=== PATIENT | female | born 1975 | race Caucasian/White ===

== ENCOUNTER → 2016-05-09 | Outpatient (CLI) | payer BC ==
--- NOTE | 2016-05-09 14:14 | USB ---
Reason for exam: clinical finding. History: Patient had first child at age 33. Family history of breast cancer in paternal aunt at age 30. Took hormonal contraceptives beginning at age 17. Indicated problem(s): lump or thickening and pain in the left breast. Physical Findings: Nurse did not find any significant physical abnormalities on exam. US Breast LT Left breast ultrasound including all four quadrants, the retroareolar region and axilla demonstrates no cystic or solid lesion seen. The panniculus inferior and lateral to the left breast at the site of patient pain was also scanned and shows no solid or cystic lesion. These results were verbally communicated with the patient and result sheet given to the patient on 05/09/16. ASSESSMENT: Negative, BI-RAD 1 RECOMMENDATION: Return to routine screening mammogram schedule for both breasts. Manage patient on a clinical basis. (patient pain and any suspicious palpable abnormality).
== END | disposition home or self-care (01) ==
LOC: RADUSWWP 12:22
PROVIDERS: ATTEND Obstetrics & Gynecology
DX: N63 Unspecified lump in breast (principal); N64.4 Mastodynia

== ENCOUNTER → 2016-12-02 | Outpatient (CLI) | payer BC ==
--- NOTE | 2016-12-03 11:36 | MM ---
Reason for exam: screening (asymptomatic). Last mammogram was performed 1 year ago. History: Patient had first child at age 33. Family history of breast cancer in paternal aunt at age 30. Took hormonal contraceptives beginning at age 17. Physical Findings: A clinical breast exam by your physician is recommended on an annual basis and results should be correlated with mammographic findings. MG 3D Screening Mammo W/Cad Bilateral CC and MLO view(s) were taken. Prior study comparison: November 21, 2015, bilateral MG 3d screening mammo w/cad. November 03, 2014, bilateral MG screening mammo w CAD. There are scattered fibroglandular densities. No significant changes when compared with prior studies. ASSESSMENT: Benign, BI-RAD 2 RECOMMENDATION: Routine screening mammogram of both breasts in 1 year.
== END | disposition home or self-care (01) ==
LOC: RADMAMWWP 13:17
PROVIDERS: ATTEND Obstetrics & Gynecology
DX: Z12.31 Encounter for screening mammogram for malignant neoplasm of breast (principal)
CPT/HCPCS: 77063; G0202

== ENCOUNTER → 2017-03-03 | Outpatient (CLI) | payer BC ==
--- NOTE | 2017-03-03 07:44 | MR ---
EXAMINATION TYPE: MR knee LT wo con DATE OF EXAM: 03/03/2017 COMPARISON: NONE HISTORY: Left knee pain x 3 months, Left Chondromalacia patella left knee, Surgery TECHNIQUE: Multiplanar, multisequence imaging of the left knee is performed without IV contrast. FINDINGS: MEDIAL MENISCUS: There is mild increased signal within the posterior horn medial meniscus compatible some mild internal derangement or degenerative change. LATERAL MENISCUS: There is increased signal within the anterior and posterior horns of the lateral me niscus. Communication with an articular surface is not identified. Type I internal derangement is lik niko present. Degenerative change could be considered. CRUCIATE LIGAMENTS: The anterior and posterior cruciate ligaments are intact and unremarkable. COLLATERAL LIGAMENTS: The medial collateral ligament and lateral collateral ligament complex are inta ct. Some mild increased signal is adjacent to the lateral collateral ligament suggestive for some mi ld strain. EXTENSOR MECHANISM: Distal quadriceps tendon appears unremarkable. There is increased signal within t he distal medial patellar tendon. Anterior superficial soft tissue swelling is present. Partial injur y near the insertion of the medial patellar tendon may be present. Correlate with the patient's sympt oms. EFFUSION: No significant suprapatellar joint effusion. POPLITEAL CYST: No popliteal/david cyst. TRICOMPARTMENT SPACES: There is diffuse narrowing through the joint space. CARTILAGE: There is diffuse thinning of the articular cartilage of the medial and lateral collateral ligaments. There may be some lateral tracking of the distal quadriceps tendon. There is thinning of t he articular cartilage of the patellofemoral joint space. There may be some loss of the lateral artic ular cartilage in the mid to superior portion of the patella. Typical signal change for chondromalaci a is not apparent. BONE MARROW SIGNAL: No focal abnormal marrow signal is appreciated. OTHER: No additional significant abnormality is appreciated. IMPRESSION: 1. Superficial soft tissue swelling over the patellar tendon. 2. There is some increased signal and thickening within the substance of the medial portion patellar tendon near its insertion on the tibia. Correlate for partial tear. Correlate with the patient's symp toms. 3. Internal derangement anterior and posterior horns lateral meniscus. Some internal derangement or d egenerative change may be within the posterior horn medial meniscus. 4. Strain of the lateral collateral ligament. Tear is not identified. 5. Osteoarthritic degenerative change tricompartment spaces, more notable with possible loss of artic ular cartilage superior lateral patella.
== END | disposition home or self-care (01) ==
LOC: RADMRIMAIN 06:38
PROVIDERS: ATTEND Orthopaedic Surgery
DX: S83.422D Sprain of lateral collateral ligament of left knee, subsequent encounter (principal); M17.12 Unilateral primary osteoarthritis, left knee

== ENCOUNTER → 2017-06-02 | Outpatient (CLI) | payer OTHER ==
--- NOTE | 2017-06-02 11:30 | XR ---
EXAMINATION TYPE: XR knee complete bilateral DATE OF EXAM: 06/02/2017 CLINICAL HISTORY: Slip and fall injury with bilateral knee pain TECHNIQUE: Three views of the bilateral knees are obtained. COMPARISON: None. FINDINGS: There is no acute fracture/dislocation evident in either knee. Mild to moderate joint spac e loss patellofemoral compartment bilaterally with mild spurring in the left is appreciated. There i s mild symmetric joint space loss medial tibiofemoral compartment bilaterally. The overlying soft tis chang appears unremarkable bilaterally. IMPRESSION: There is no acute fracture or dislocation in either knee.
== END | disposition home or self-care (01) ==
LOC: RADXRMAIN 10:51
PROVIDERS: ATTEND Emergency Medicine
DX: S80.01XA Contusion of right knee, initial encounter (principal); M25.562 Pain in left knee

== ENCOUNTER → 2017-06-11 | Outpatient (CLI) | payer OTHER ==
--- NOTE | 2017-06-11 15:21 | XR ---
Right leg HISTORY: Contusion, trauma one month prior To views of the right leg on 4 images, technique somewhat limited Bone mineralization, joint spaces and alignment are maintained. Suspect some soft tissue swelling. IMPRESSION: No fracture or dislocation is evident. Consider alternate imaging as indicated.
== END | disposition home or self-care (01) ==
LOC: RADXRMAIN 12:09
PROVIDERS: ATTEND Emergency Medicine
DX: S80.01XA Contusion of right knee, initial encounter (principal)

== ENCOUNTER → 2017-07-03 | Outpatient (CLI) | payer OTHER ==
--- NOTE | 2017-07-03 08:21 | MR ---
EXAMINATION TYPE: MR knee LT wo con DATE OF EXAM: 07/03/2017 COMPARISON: Prior MRI left knee March 03, 2017. Bilateral knee x-rays June 02, 2017 HISTORY: Left knee pain and contusion injury per order. Recent fall injury May 17, 2017 per patie nt. History of prior knee surgery per patient. TECHNIQUE: Multiplanar, multisequence images of the knee is performed without IV contrast. FINDINGS: MEDIAL MENISCUS: Anterior and posterior horns are intact without tear. LATERAL MENISCUS: There is lateral extrusion of lateral meniscus seen best on coronal images with inc reased signal on coronal image 18 corresponding to central body. There is increased signal confirm sa gittal image 6 extending to inferior articular surface. CRUCIATE LIGAMENTS: The anterior and posterior cruciate ligaments are intact and unremarkable. COLLATERAL LIGAMENTS: The medial collateral ligament is intact and unremarkable. There is marked incr eased signal lateral collateral ligament complex causing abnormal bowing . I suspect multi septated p araMeniscal cyst. Focus of increased at distal femoral attachment true LCL is felt present coronal image 21 superior aspect. EXTENSOR MECHANISM: Visualized quadriceps and patellar tendons are intact. Persistent slight increase d signal distal patellar tendon is present could reflect magic angle phenomenon. Some increased fluid signal deep to distal quadriceps tendon sagittal image 13 is noted could reflect suprapatellar impin gement syndrome. EFFUSION: No significant suprapatellar joint effusion. POPLITEAL CYST: No popliteal/david cyst. TRICOMPARTMENT SPACES: There is mild to moderate joint space loss and spurring most prominent lateral aspect of the patellofemoral compartment. Additional mild joint space loss medial and lateral tibiof emoral compartments is seen. CARTILAGE: There is some thinning of articular cartilage along posterior patellar pole inferior later al aspect. No full-thickness loss is identified. BONE MARROW SIGNAL: Heterogeneity consistent with red marrow reconversion is seen. OTHER: No additional significant abnormality is appreciated. IMPRESSION: 1. Redemonstration of full-thickness tear through the central body of the lateral meniscus with large adjacent parameniscal septated cyst causing mass effect on lateral collateral ligament complex. 2. Persistent mild proximal tendinosis and moderate chronic sprain injury lateral collateral ligament complex. No significant tear. 3. Stable mild to moderate tricompartment degenerative changes most prominent patellofemoral compartm ent.
== END | disposition home or self-care (01) ==
LOC: RADMRIMAIN 06:17
PROVIDERS: ATTEND Emergency Medicine
DX: S83.282A Other tear of lateral meniscus, current injury, left knee, initial encounter (principal); M67.864 Other specified disorders of tendon, left knee

== ENCOUNTER → 2018-01-12 | Outpatient (CLI) | payer BC ==
--- NOTE | 2018-01-14 10:33 | MM ---
Reason for exam: screening (asymptomatic). Last mammogram was performed 1 year and 1 month ago. History: Patient had first child at age 33. Family history of breast cancer in paternal aunt at age 30. Took hormonal contraceptives beginning at age 17. Physical Findings: A clinical breast exam by your physician is recommended on an annual basis and results should be correlated with mammographic findings. MG 3D Screening Mammo W/Cad Bilateral CC and MLO view(s) were taken. Prior study comparison: December 02, 2016, bilateral MG 3d screening mammo w/cad. November 21, 2015, bilateral MG 3d screening mammo w/cad. There are scattered fibroglandular densities. No significant changes when compared with prior studies. ASSESSMENT: Negative, BI-RAD 1 RECOMMENDATION: Routine screening mammogram of both breasts in 1 year.
== END | disposition home or self-care (01) ==
LOC: RADMAMWWP 16:21
PROVIDERS: ATTEND Obstetrics & Gynecology
DX: Z12.31 Encounter for screening mammogram for malignant neoplasm of breast (principal)
CPT/HCPCS: 77063; 77067

== ENCOUNTER → 2018-10-19 | Outpatient (CLI) | payer BC | END | disposition home or self-care (01) | LOC: LABWHC1 12:03 | PROVIDERS: ATTEND Internal Medicine | DX: Z13.0 Encounter for screening for diseases of the blood and blood-forming organs and certain disorders involving the immune mechanism (principal); Z83.2 Family history of diseases of the blood and blood-forming organs and certain disorders involving the immune mechanism | CPT/HCPCS: 36415; 81291 ==

== ENCOUNTER → 2019-01-13 | Outpatient (CLI) | payer BC ==
--- NOTE | 2019-01-14 10:25 | MM ---
Reason for exam: screening (asymptomatic). Last mammogram was performed 1 year ago. History: Patient had first child at age 33. Family history of breast cancer in paternal aunt at age 30. Took hormonal contraceptives beginning at age 17. Physical Findings: A clinical breast exam by your physician is recommended on an annual basis and results should be correlated with mammographic findings. MG 3D Screening Mammo W/Cad Bilateral CC and MLO view(s) were taken. Prior study comparison: January 12, 2018, bilateral MG 3d screening mammo w/cad. December 02, 2016, bilateral MG 3d screening mammo w/cad. There are scattered fibroglandular densities. No significant changes when compared with prior studies. ASSESSMENT: Negative, BI-RAD 1 RECOMMENDATION: Routine screening mammogram of both breasts in 1 year.
== END | disposition home or self-care (01) ==
LOC: RADMAMWWP 16:13
PROVIDERS: ATTEND Obstetrics & Gynecology
DX: Z12.31 Encounter for screening mammogram for malignant neoplasm of breast (principal)
CPT/HCPCS: 77063; 77067

== ENCOUNTER → 2019-05-25 | Outpatient (CLI) | payer BC ==
[2019-05-25 17:18] VITALS: BP 144/78; PULSE 61; TEMP 98.2; BMI 41.1
--- NOTE | 2019-05-25 21:25 | P.BASOAP ---
Subjective Progress Note Date: 05/25/19 Principal diagnosis: Patient here today complaining of left lower quadrant abdominal pain. She has lost 60 pounds since having her band rosemary Placed. An ultrasound and CAT scan were performed. Still feels restriction. No nausea or vomiting. No heartburn. No hematuria. Objective - Vital Signs Vital signs: Vital Signs Temp 98.2 F 05/25/19 17:11 Pulse 61 05/25/19 17:11 Resp BP 144/78 05/25/19 17:11 Pulse Ox Intake & Output 05/25/19 05/25/19 05/26/19 06:59 18:59 06:59 Weight 133.81 kg - Exam Abdomen: Soft, nontender, nondistended Assessment/Plan (1) Left lower quadrant abdominal pain Narrative/Plan: We will review recent CAT scan. Continue to monitor symptoms Plan: Date: 05/25/19 Initial Weight: Initial BMI: Current Weight: 133.81 kg Current BMI: 41.1 Type of Surgery: Total Volume in Band: Previous Volume: Volume Removed: Volume Added: Band Size:
== END ==
LOC: BARWHC3 15:40
PROVIDERS: ATTEND Surgery
DX: R10.31 Right lower quadrant pain (principal)
CPT/HCPCS: 99211

== ENCOUNTER → 2020-01-04 | Outpatient (CLI) | payer BC ==
--- NOTE | 2020-01-04 16:47 | P.BASOAP ---
Subjective Progress Note Date: 01/04/20 Principal diagnosis: Abdominal pain 44-year-old female known to our service. Patient with history of previous lap band placement. Last patient started having pain left upper quadrant at the port site. Patient states it felt firm in that area. This was associated with satiety, nausea, and increased belching. No vomiting. The night before the patient had reflux which she does not normally have. This was a different location than the pain that she had when she was seen earlier this year which was present in the left lower quadrant. She has had some weight gain. She has been more active. She is walking 3 miles daily. Pain resolved on Friday. Friday the pain was off and on throughout the day. Feels fine currently. Feels decent restriction. Again no vomiting. No dysphagia. Objective - Exam Abdomen: Soft, nontender, nondistended Assessment/Plan (1) Left lower quadrant abdominal pain Narrative/Plan: Patient doing better at this time. Continue monitoring for recurrent episodes of left upper quadrant pain. If pain recurs we'll proceed with upper endoscopy. Patient will call me with any changes. No band adjustment at this time. Plan: Date: Initial Weight: Initial BMI: Current Weight: Current BMI: Type of Surgery: Total Volume in Band: Previous Volume: Volume Removed: Volume Added: Band Size:
[2020-01-04 17:24] VITALS: BP 147/90; PULSE 59; TEMP 98; BMI 43.0
== END | disposition home or self-care (01) ==
LOC: BARWHC3 15:53
PROVIDERS: ATTEND Surgery
DX: R10.32 Left lower quadrant pain (principal)
CPT/HCPCS: 99211

== ENCOUNTER → 2020-01-27 | Outpatient (CLI) | payer BC ==
--- NOTE | 2020-01-28 12:10 | MM ---
Reason for exam: screening (asymptomatic). Last mammogram was performed 1 year ago. History: Patient had first child at age 33. Family history of breast cancer in paternal aunt at age 30. Took hormonal contraceptives for 14 years beginning at age 17. Physical Findings: A clinical breast exam by your physician is recommended on an annual basis and results should be correlated with mammographic findings. MG 3D Screening Mammo W/Cad Bilateral CC and MLO view(s) were taken. XCCL view(s) were taken of the right breast. Prior study comparison: January 13, 2019, bilateral MG 3d screening mammo w/cad. January 12, 2018, bilateral MG 3d screening mammo w/cad. The breast tissue is heterogeneously dense. This may lower the sensitivity of mammography. There is no discrete abnormality. ASSESSMENT: Negative, BI-RAD 1 RECOMMENDATION: Routine screening mammogram of both breasts in 1 year.
== END | disposition home or self-care (01) ==
LOC: RADMAMWWP 15:55
PROVIDERS: ATTEND Obstetrics & Gynecology
DX: Z12.31 Encounter for screening mammogram for malignant neoplasm of breast (principal)
CPT/HCPCS: 77063; 77067

== ENCOUNTER 2020-08-02 10:47 | Day surgery (SDC) | payer BC ==
[2020-07-28 11:23] VITALS: BMI 42.5
[~2020-08-02 10:47] MED LIST: LACTATED RINGERS 1,000 ML IV SCH; LIDOCAINE 1% (10MG/ML) FOR IV START INTRADERMA PRN
[2020-08-02 11:31] VITALS: TEMP 98
[2020-08-02] MEDS ORDERED: PROPOFOL 10 MG/ML 20 ML VIAL IV ONE (12:11)
--- NOTE | 2020-08-02 12:23 | P.PCN ---
Date of Procedure: 08/02/20 Procedure(s) Performed: BRIEF HISTORY: Patient is a 45-year-old pleasant male scheduled for an elective colonoscopy as a part of evaluation of left lower quadrant abdominal pain for the last 1 year duration. She also has history of chronic constipation. PROCEDURE PERFORMED: Colonoscopy. PREOPERATIVE DIAGNOSIS: Left lower quadrant abdominal pain and chronic constipation of 1 year duration. IV sedation per Anesthesia. PROCEDURE: After informed consent was obtained, the patient, was brought into [facility] endoscopy unit. IV sedation was administered by Anesthesia under continuous monitoring. Digital rectal examination was normal. Initially the Olympus CF-160 flexible video colonoscope was then inserted in the rectum, gradually advanced into the cecum without any difficulty. Careful examination was performed as the scope was gradually being withdrawn. Ileocecal valve and the appendiceal orifice were visualized and appeared normal. Prep was excellent. Mucosa of the cecum, ascending colon, transverse colon, descending colon, sigmoid colon, and rectum appeared normal. Scattered sigmoid diverticulosis. Retroflexion was performed in the rectum and no lesions were seen. The patient tolerated the procedure well. IMPRESSION: Normal-appearing colon from rectum to cecum with no evidence of colorectal neoplasia Scattered sigmoid diverticulosis. RECOMMENDATIONS: Findings of this examination were discussed with the patient well as her family. She was advised to be on a liquid high-fiber diet and take fiber supplements a regular basis. She can have a repeat screening colonoscopy in 10 years.
[2020-08-02 12:31] VITALS: PULSE 68
[2020-08-02 12:36] VITALS: BP 134/62; RESP 16
== END 2020-08-02 12:54 | disposition home or self-care (01) ==
LOC: ORWHC2ENDO 10:47
PROVIDERS: ATTEND Internal Medicine Gastroenterology
DX: Z79.899 Other long term (current) drug therapy (principal); Z86.718 Personal history of other venous thrombosis and embolism; Z98.84 Bariatric surgery status; Z90.49 Acquired absence of other specified parts of digestive tract; Z98.890 Other specified postprocedural states
CPT/HCPCS: 81025; 45378; J2704

== ENCOUNTER → 2021-02-26 | Outpatient (CLI) | payer BC ==
--- NOTE | 2021-02-28 10:46 | MM ---
Reason for exam: screening (asymptomatic). Last mammogram was performed 1 year and 1 month ago. History: Patient had first child at age 33. Family history of breast cancer in paternal aunt at age 30. Took hormonal contraceptives for 14 years beginning at age 17. Physical Findings: A clinical breast exam by your physician is recommended on an annual basis and results should be correlated with mammographic findings. MG 3D Screening Mammo W/Cad Bilateral CC and MLO view(s) were taken. Prior study comparison: January 27, 2020, bilateral MG 3d screening mammo w/cad. January 13, 2019, bilateral MG 3d screening mammo w/cad. The breast tissue is heterogeneously dense. This may lower the sensitivity of mammography. Focal asymmetry summation density left MLO view. No significant changes when compared with prior studies. ASSESSMENT: Benign, BI-RAD 2 RECOMMENDATION: Routine screening mammogram of both breasts in 1 year.
== END | disposition home or self-care (01) ==
LOC: RADMAMWWP 15:59
PROVIDERS: ATTEND Obstetrics & Gynecology
DX: Z12.31 Encounter for screening mammogram for malignant neoplasm of breast (principal); Z80.3 Family history of malignant neoplasm of breast
CPT/HCPCS: 77063; 77067

== ENCOUNTER → 2021-08-22 | Outpatient (CLI) | payer BC ==
[~2021-08-22] MED LIST changes: +BEBTELOVIMAB (EUA) 175 MG/2 ML VIAL IV ONE; -LACTATED RINGERS 1,000 ML IV SCH; -LIDOCAINE 1% (10MG/ML) FOR IV START INTRADERMA PRN; +SODIUM CHLORIDE 0.9% 500 ML 500 ML in EMPTY BAG 1 BAG IV PRN
[2021-08-22 11:22] VITALS: RESP 16; TEMP 97.9
[2021-08-22 12:32] VITALS: BP 130/87; PULSE 76
== END ==
LOC: PROCWHC3 11:00
PROVIDERS: ATTEND Physician Assistant
DX: U07.1 COVID-19 (principal); E66.9 Obesity, unspecified; Z68.42 Body mass index [BMI] 45.0-49.9, adult; Z87.891 Personal history of nicotine dependence
CPT/HCPCS: 96374; Q0222; M0222

== ENCOUNTER → 2022-03-18 | Outpatient (CLI) | payer BC ==
--- NOTE | 2022-03-18 18:04 | US ---
EXAMINATION TYPE: US venous doppler duplex LE LT DATE OF EXAM: 03/18/2022 5:38 PM COMPARISON: NONE CLINICAL HISTORY: M79.662 PAIN LEFT CALF. Left calf pain x 3 hours. Patient states she has hx of DVT in right leg. SIDE PERFORMED: Left TECHNIQUE: The lower extremity deep venous system is examined utilizing real time linear array sonog adriana with graded compression, doppler sonography and color-flow sonography. VESSELS IMAGED: Common Femoral Vein Deep Femoral Vein Greater Saphenous Vein * Femoral Vein Popliteal Vein Small Saphenous Vein * Proximal Calf Veins (* superficial vessels) Left Leg: Negative for DVT IMPRESSION: No evidence of deep vein thrombosis in the left leg.
== END | disposition home or self-care (01) ==
LOC: RADUSWWP 17:06
PROVIDERS: ATTEND Family Medicine
DX: M79.662 Pain in left lower leg (principal)

== ENCOUNTER → 2022-04-19 | Outpatient (CLI) | payer BC ==
--- NOTE | 2022-04-22 09:53 | MM ---
Reason for Exam: Screening (asymptomatic). Last mammogram was performed 1 year(s) and 1 month(s) ago. Patient History: Menarche at age 15. First Full-Term at age 33. Late child-bearing (after 28). Patient has history of breast feeding. Hormonal Contraceptives for 14 years from age 17 until age 31. Paternal aunt had breast cancer, age 30. Last menstrual period: 04/11/2022 Risk Values: Nasreen 5 year model risk: 1.1%. NCI Lifetime model risk: 11.4%. Prior Study Comparison: 01/13/2019 Bilateral Screening Mammogram, [facility]. 01/27/2020 Bilateral Screening Mammogram, [facility]. 02/26/2021 Bilateral Screening Mammogram, [facility]. Tissue Density: The breast tissue is heterogeneously dense. This may lower the sensitivity of mammography. Findings: Analyzed By CAD. There is no suspicious group of microcalcifications or new suspicious mass in either breast. Overall Assessment: Negative, BI-RAD 1 Management: Screening Mammogram of both breasts in 1 year. A clinical breast exam by your physician is recommended on an annual basis and results should be correlated with mammographic findings. [facility] will attempt to contact patient to return for supplemental views and ultrasound if indicated. Electronically signed and approved by: Toribio Benavidez DO
== END | disposition home or self-care (01) ==
LOC: RADMAMWWP 10:12
PROVIDERS: ATTEND Obstetrics & Gynecology
DX: Z12.31 Encounter for screening mammogram for malignant neoplasm of breast (principal); Z80.3 Family history of malignant neoplasm of breast
CPT/HCPCS: 77063; 77067

== ENCOUNTER → 2023-04-22 | Outpatient (CLI) | payer BC ==
--- NOTE | 2023-04-23 10:06 | MM ---
Reason for Exam: Screening (asymptomatic). Last screening mammogram was performed 12 month(s) ago. Patient History: Menarche at age 15. First Full-Term at age 33. Late child-bearing (after 28). Premenopausal. Patient has history of breast feeding. Hormonal Contraceptives for 14 years from age 17 until age 31. Paternal aunt had breast cancer, age 30. Last menstrual period: 04/04/2023 Risk Values: Narseen 5 year model risk: 1.2%. NCI Lifetime model risk: 11.3%. Prior Study Comparison: 01/27/2020 Bilateral Screening Mammogram, [facility]. 02/26/2021 Bilateral Screening Mammogram, [facility]. 04/19/2022 Bilateral MG 3D screening mammo w/cad, [facility]. Tissue Density: The breast tissue is heterogeneously dense. This may lower the sensitivity of mammography. Findings: Analyzed By CAD. There is no suspicious group of microcalcifications or new suspicious mass. Overall Assessment: Negative, BI-RAD 1 Management: Screening Mammogram of both breasts in [address] [facility] will attempt to contact patient to return for supplemental views and ultrasound if indicated. Patient should continue monthly self-breast exams. A clinical breast exam by your physician is recommended on an annual basis. This exam should not preclude additional follow-up of suspicious palpable abnormalities. Note on Nasreen scores and lifetime risk: 1. A Nasreen score greater than 3% is considered moderate risk. If this is the case, consider specialist referral to assess eligibility for a risk reducing agent. 2. If overall lifetime risk for the development of breast cancer is 20% or higher, the patient may qualify for future screening with alternating mammogram and breast MRI. Electronically signed and approved by: Toribio Benavidez DO
== END | disposition home or self-care (01) ==
LOC: RADMAMWWP 09:38
PROVIDERS: ATTEND Obstetrics & Gynecology
DX: Z12.31 Encounter for screening mammogram for malignant neoplasm of breast (principal); Z80.3 Family history of malignant neoplasm of breast
CPT/HCPCS: 77063; 77067